=== PATIENT | male | born 1975 | race African-American/Black ===

== ENCOUNTER 2017-01-31 11:47 | Inpatient (IN) | payer SELFPAY ==
[~2017-01-31] VITALS: Ht 190.5 cm; Wt 163.0 kg
[2017-01-31 12:18] LABS: ADD MIUA? YES; BILIRUBIN NEGATIVE; BLOOD MODERATE; COLOR YELLOW ((YELLOW)); GLUCOSE (STRIP) NEGATIVE; KETONES NEGATIVE; LEUKOCYTES LARGE; NITRITE POSITIVE; PROTEIN (STRIP) 30; SPECIFIC GRAVITY 1.014 (1.000-1.030)
[2017-01-31 12:27] LABS: BACTERIA RARE /HPF; EPITHELIAL CELLS RARE /HPF; MUCUS TRACE /LPF; UCUL ADDED? YES; WHITE BLOOD CELLS TNTC /HPF (0-5)
[2017-01-31 12:28] LABS: HEMATOCRIT 38.2 % (38.0-50.0); MCH 27.3 PG (29.0-34.0); MCHC 33.8 G/DL (30.0-36.0); MCV 80.8 FL (86-99); MEAN PLAT.VOLUME 9.4 uM^3 (9.0-12.4); PLATELET COUNT 232 K/uL (156-360); RBC DIS.WIDTH-CV 14.6 % (11.8-14.6); RBC DIS.WIDTH-SD 42.9 % (39-53); RED BLOOD COUNT 4.73 M/uL (4.00-5.50); WHITE BLOOD COUNT 16.6 K/uL (4.1-10.2)
[2017-01-31 12:36] LABS: CHLORIDE 104 mEq/L (99-109); POTASSIUM 3.8 mEq/L (3.7-5.4); SODIUM 140 mEq/L (136-147)
[2017-01-31 12:39] LABS: GLUCOSE 103 mg/dL (70-99)
[2017-01-31 12:40] LABS: ANION GAP 10 MEQ/L (2-14)
[2017-01-31 12:42] LABS: ALKALINE PHOSPHATASE 110 IU/L (3-129); GFR ESTIMATE (CALCULATED) > 59 mL/min/
[2017-01-31 12:43] LABS: UREA NITROGEN (BUN) 8 mg/dL (9-23)
[2017-01-31] MEDS ORDERED: ADVIL,NUPRIN,M200 MG PO (15:47)
[2017-01-31 16:18] VITALS: BP 167/80
[2017-01-31 20:00] VITALS: BP 162/83
[2017-02-01] VITALS (7 sets, daily range): BP systolic 131–191; BP diastolic 66–100
[2017-02-01 01:04] LABS: AMPHETAMINES QUANT VALUE 0 NG/ML; BARBITUATES QUANT VALUE 0 NG/ML; BENZODIAZEPINES QUANT VALUE 0 NG/ML; BENZODIAZEPINES, URINE SCREEN Negative (200 ng/mL); OPIATES QUANTITATIVE VALUE 0 NG/ML; PHENCYCLIDINE QUANT VALUE 0 NG/ML
[2017-02-01 06:59] LABS: EOSINOPHIL (%) 0.4 % (0-5); EOSINOPHIL COUNT 0.1 K/uL (0-0.3); HEMATOCRIT 39.4 % (38.0-50.0); IMMATURE GRANULOCYTE (%) 0.4 % (0.0-0.7); IMMATURE GRANULOCYTE COUNT 0.1 K/uL; INSTRUMENT ABS NEUTROPHIL CT 9.9 K/uL; MCH 26.7 PG (29.0-34.0); MCHC 32.5 G/DL (30.0-36.0); MCV 82.1 FL (86-99); MEAN PLAT.VOLUME 10.2 uM^3 (9.0-12.4); MONOCYTE (%) 16.1 % (3-12); MONOCYTE COUNT 2.3 K/uL (0-0.8); NEUTROPHIL (%) 68.8 % (45-76); NEUTROPHIL COUNT 9.9 K/uL (1.8-6.4); PLATELET COUNT 230 K/uL (156-360); RBC DIS.WIDTH-CV 14.9 % (11.8-14.6); RBC DIS.WIDTH-SD 45.1 % (39-53); WHITE BLOOD COUNT 14.5 K/uL (4.1-10.2)
[2017-02-01 07:35] LABS: ANION GAP 10 MEQ/L (2-14); CHLORIDE 102 MEQ/L (99-109); GFR ESTIMATE (CALCULATED) > 59 mL/min/; GLUCOSE 97 mg/dL (70-99); POTASSIUM 3.7 MEQ/L (3.7-5.4); SAMPLE HEMOLYSIS CHECK 0; SAMPLE ICTERIC CHECK 0; SAMPLE LIPEMIA CHECK 0; SODIUM 138 MEQ/L (136-147); UREA NITROGEN (BUN) 11 mg/dL (9-23)
[2017-02-01 22:06] LABS: EOSINOPHIL (%) 0.6 % (0-5); EOSINOPHIL COUNT 0.1 K/uL (0-0.3); HEMATOCRIT 35.8 % (38.0-50.0); IMMATURE GRANULOCYTE (%) 0.7 % (0.0-0.7); IMMATURE GRANULOCYTE COUNT 0.1 K/uL; INSTRUMENT ABS NEUTROPHIL CT 9.5 K/uL; LYMPHOCYTE COUNT 2.2 K/uL (1.0-2.8); MCH 26.6 PG (29.0-34.0); MCV 80.6 FL (86-99); MONOCYTE (%) 15.1 % (3-12); MONOCYTE COUNT 2.1 K/uL (0-0.8); NEUTROPHIL (%) 67.7 % (45-76); NEUTROPHIL COUNT 9.5 K/uL (1.8-6.4); PLATELET COUNT 227 K/uL (156-360); RBC DIS.WIDTH-CV 14.6 % (11.8-14.6); RBC DIS.WIDTH-SD 42.7 % (39-53); RED BLOOD COUNT 4.44 M/uL (4.00-5.50); WHITE BLOOD COUNT 14.1 K/uL (4.1-10.2)
[2017-02-01 22:14] LABS: CARBON DIOXIDE (BICARBONATE) 28.5 MEQ/L (20-31)
[2017-02-01 22:17] LABS: ANION GAP 10 MEQ/L (2-14); CHLORIDE 100 MEQ/L (99-109); POTASSIUM 3.5 MEQ/L (3.7-5.4); SAMPLE HEMOLYSIS CHECK 0; SAMPLE ICTERIC CHECK 0; SAMPLE LIPEMIA CHECK 0; SODIUM 133 MEQ/L (136-147)
[2017-02-01 22:23] LABS: ALKALINE PHOSPHATASE 94 IU/L (3-129); GFR ESTIMATE (CALCULATED) > 59 mL/min/; GLUCOSE 99 mg/dL (70-99); UREA NITROGEN (BUN) 10 mg/dL (9-23)
[2017-02-02] VITALS (9 sets, daily range): BP systolic 137–174; BP diastolic 77–103
[2017-02-02 06:29] LABS: HEMATOCRIT 35.8 % (38.0-50.0); MCH 26.9 PG (29.0-34.0); MCHC 33.2 G/DL (30.0-36.0); MEAN PLAT.VOLUME 9.7 uM^3 (9.0-12.4); PLATELET COUNT 242 K/uL (156-360); RBC DIS.WIDTH-CV 14.8 % (11.8-14.6); RBC DIS.WIDTH-SD 43.6 % (39-53); RED BLOOD COUNT 4.42 M/uL (4.00-5.50); WHITE BLOOD COUNT 12.7 K/uL (4.1-10.2)
[2017-02-02 06:55] LABS: 6-HOUR TOBRAMYCIN 1.4 UG/ML; ANION GAP 7 MEQ/L (2-14); CHLORIDE 104 MEQ/L (99-109); GFR ESTIMATE (CALCULATED) > 59 mL/min/; GLUCOSE 102 mg/dL (70-99); POTASSIUM 3.9 MEQ/L (3.7-5.4); SAMPLE HEMOLYSIS CHECK 0; SAMPLE ICTERIC CHECK 0; SAMPLE LIPEMIA CHECK 0; UREA NITROGEN (BUN) 8 mg/dL (9-23)
[2017-02-02 06:58] LABS: SODIUM 140 MEQ/L (136-147)
[2017-02-03 03:10] VITALS: BP 137/78
[2017-02-03] MEDS ORDERED: AMLODIPINE BESY10 MG PO (11:29)
[2017-02-03] MEDS ORDERED: CIPROFLOXACIN500 M1 PO (11:29)
[2017-02-03 11:35] VITALS: BP 155/80
[2017-02-03 11:50] LABS: C DIFF TOXIN NEGATIVE (NEGATIVE)
[2017-02-03 12:06] LABS: PROBE CHECK PASS; SPECIMEN PROCESSING CONTROL PASS
== END 2017-02-03 13:52 | disposition home or self-care (01) | DRG 872 ==
LOC: EME 11:47 → EDOF 15:19 → 5WEST 15:19 → EDOF 15:19 → ENRESERV 15:25 → EDOF 15:51 → 5WEST 16:14 → CANRESERV 02-01 12:46 → ENRESERV 02-01 12:46 → 5WEST 02-03 13:52
PROVIDERS: Hospitalist; Nurse Practitioner Adult Health; Physician Assistant Medical
DX: A41.9 Sepsis, unspecified organism (principal); N10 Acute pyelonephritis; Z68.41 Body mass index [BMI] 40.0-44.9, adult; F17.200 Nicotine dependence, unspecified, uncomplicated; B96.20 Unspecified Escherichia coli [E. coli] as the cause of diseases classified elsewhere
CPT/HCPCS: 71010; 74176; 80048; 80053; 80200; 80306 90; 81003; 82803; 83605; 85025; 85025 91; 85027; 87040; 87077; 87086; 87186; 87493; 87801; 99281; 99285; G0378; J0360; J0696; J0780; J1200; J1644; J1885; J2543; J3260; J7030; J7050; J7120